=== PATIENT | female | born 2000 | race African-American/Black ===

== ENCOUNTER 2022-12-21 20:57 | Emergency (ER) | payer OTHER ==
[~2022-12-21] VITALS: Ht 162.6 cm; Wt 102.2 kg
[2022-12-21 21:00] VITALS: BP 121/84
[2022-12-21] MEDS ORDERED: AMOX1TAB16 PO (21:13)
[2022-12-21] MEDS ORDERED: TOPUD PO (21:13)
== END 2022-12-21 21:43 | disposition home or self-care (01) ==
LOC: ER 20:57
DX: J02.9 Acute pharyngitis, unspecified (principal)
CPT/HCPCS: 87070; 87430; 99283